=== PATIENT | male | born 1960 | race African-American/Black ===

== ENCOUNTER → 2020-12-17 | Outpatient (CLI) | payer BC, OTHER ==
[~2020-12-17] MED LIST: ALLOPURINOL 30300 M1 PO; APPLE CIDER VI1 EAC1 PO; ASA81BEC PO; KLOR-CON 10 ER10 MEQ PO; LOVASTATIN 20 M20 MG PO; METFORMIN HCL500 M3 PO; NORVASC5 M1 PO; OLMESARTAN-HCT1 EAC2 PO; SUPER THERAVIT1 EACH PO; VITAMIN D3125 MC2 PO
== END ==
LOC: LAB 09:58
PROVIDERS: ATTEND Student in an Organized Health Care Education/Training Program
DX: Z01.812 Encounter for preprocedural laboratory examination (principal); Z20.822 Contact with and (suspected) exposure to COVID-19

== ENCOUNTER 2020-12-23 06:07 | Day surgery (SDC) | payer BC, OTHER ==
[2020-12-17 09:58] LABS: URINE BILIRUBIN NEGATIVE (Negative); URINE BLOOD NEGATIVE (Negative); URINE CLARITY CLEAR; URINE COLOR YELLOW; URINE GLUCOSE-RANDOM* NEGATIVE (Negative); URINE KETONES NEGATIVE (Negative); URINE LEUKOCYTES-REFLEX NEGATIVE (Negative); URINE NITRITE-REFLEX NEGATIVE (Negative); URINE PROTEIN (DIPSTICK) NEGATIVE (Negative); URINE UROBILINOGEN 0.2 E.U./dl (0.2-1.0)
[2020-12-17 10:01] LABS: HEMATOCRIT 42.4 % (42.0-52.0); HEMOGLOBIN 14.1 gm/dL (14.0-18.0); MCH 30.6 pg (26.0-34.0); MCHC 33.3 g/dL (28.0-37.0); RBC 4.61 mil/uL (4.50-6.00); RDW 14.5 % (10.5-14.5); WBC 8.8 thou/uL (4.0-11.0)
[2020-12-17 10:15] LABS: INR 1.1; PROTIME 11.2 Seconds (9.3-11.4)
[2020-12-17 10:20] LABS: ALBUMIN 4.2 g/dL (3.4-5.0); CALCIUM 9.9 mg/dL (8.5-10.1); CREATININE 1.5 mg/dL (0.7-1.3); POTASSIUM 4.2 mmol/L (3.5-5.1)
--- NOTE | 2020-12-17 10:47 | EKG ---
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
[2020-12-18 00:06] LABS: GLYCOHEMOGLOBIN (HGB A1C) 6.2 % (4.8-5.6)
[~2020-12-23] VITALS: Ht 190.5 cm; Wt 158.8 kg
[2020-12-23 08:01] VITALS: BP 142/87
[2020-12-23 12:10] VITALS: BP 137/84
[2020-12-23 16:40] VITALS: BP 157/92
[2020-12-23 16:54] VITALS: BP 94/63
--- NOTE | 2020-12-23 19:29 | NUR ---
PT CARE ASSUMED AT 1030 FROM OR. A&Ox4. ON O2 4L FOR POSSIBLE UNDIAGNOSED SLEEP APNEA PER POST OP. KAVON DRESSING DRY AND INCT. POLARCARE/ SCD/SUNIL HOSES IN PLACE. PT/RT ON BOARD. ON BEDREST PER PT DUE TO PT BUCKLING. PAIN CONTROLLED WELL WITH PAIN MEDICATION ON BOARD. IV PATENT WITH NO REDNESS OR EDEMA, FLUIDS INFUSING. URINAL AT BEDSITE. FALL PROTOCOL IN PLACE. CALL IGHT IN REACH. WILL CONTINUE TO MONITOR.
[2020-12-23 19:59] VITALS: BP 142/85
--- NOTE | 2020-12-23 22:57 | NUR ---
ASSUMED PT CARE AT AROUND 1915 HRS. PT DENIES PAIN. R KNEE WITH KAVON DRSG INTACT WELL POLAR MCKENNA IN PLACE.AFEBRILE. DENIES NAUSEA OR VOMITING. VOIDING PER URINAL-ADEQUATE OUTPUT.BEDREST FOR TONIGHT. R FOOT WITH GOOD CSM.CALL LIGHT WITHIN REACH.
[2020-12-24 05:31] LABS: HEMATOCRIT 37.9 % (42.0-52.0); HEMOGLOBIN 12.4 gm/dL (14.0-18.0); MCHC 32.7 g/dL (28.0-37.0); MCV 94.6 fL (80.0-100.0); RDW 14.6 % (10.5-14.5); WBC 10.3 thou/uL (4.0-11.0)
[2020-12-24 07:23] VITALS: BP 139/80
[2020-12-24 07:44] VITALS: BP 139/80
--- NOTE | 2020-12-24 10:23 | NUR ---
PT CARE ASSUMED AT 0700. A&Ox4. IV PATENT WITH NO REDNESS OR EDEMA, FLUIDS INFUSIONG. IV DC'D. PT CLEARED PT TO DISCHARGE. WEANED OFF OF O2 AND SATING AT 94%. KAVON DRESSING DRY AND INTACT. POLARPACK/SCD'S/SUNIL HOSES IN PLACE. PAIN MANAGED VERY WELL WITH PAIN MEDICATION ON BOARD. FALL PROTOCOL IN PLACE. PT DISCHARGED WITH NO FURTHER QUESTIONS. CALL LIGHT IN REACH. WALKER PROVIDED. WILL CONTINUE TO MONITOR UNTIL DISCHARGING.
[2020-12-24 10:52] VITALS: BP 139/80
[2020-12-24 11:02] VITALS: BP 139/80
--- NOTE | 2020-12-24 11:03 | NUR ---
ASSESSMNENT- PT PLANS TO DC HOME LATER TODAY. HE HAS BEEN CLEARED BY PHYSICAL THERAPY. PT NEEDS A BARIATRIC WALKER FOR HOME USE. OFFERED OPTIONS WITHIN THE INS NETWORK & HE CHOSE [employer]. OBTAINED SCRIPT FOR BARIATRIC ROLLER WALKER & THIS WAS GIVEN TO TACHO [employer] REP. WHO ISSUED PT HIS WALKER. PT WILL GO TO [facility] IN [place]. WILL BE ABLE TO ASSIST & HE HAS A DTR IN THE AREA. NO OTHER DC NEEDS IDENTIFIED.
--- NOTE | 2020-12-27 16:03 | O ---
[facility] [place] [address] OPERATIVE REPORT Name: SANDIE OLIVARES Room #: DEP [facility]..#: [id number] Admission: 12/23/20 Attend Phys: Chris Flanagan MD Discharge: 12/24/20 Date of : 60 Report #: [id number] THIS REPORT FOR: cc: Emil Price MD, Michael M. MD Abraham,Chris Perez MD ~ DATE OF SERVICE: 12/23/2020 PREOPERATIVE DIAGNOSIS: Right knee osteoarthritis. POSTOPERATIVE DIAGNOSIS: Right knee osteoarthritis. PROCEDURE: Right total knee arthroplasty using Navio robotic assistance. SURGEON: Chris Flanagan MD. MEASUREMENT ANALYST: Elizabeth Diez PA-C. INDICATIONS FOR MEASUREMENT ANALYST: Throughout the case, extensive retraction and manipulation of the knee was required. This was afforded to me by my certified pathology assistant. ANESTHESIA: LMA with an adductor canal block. IMPLANTS: Avila and Nephew size 8 Oxinium Journey II BCS femur, size 7 tibia, size 12 constrained polyethylene and size 38 patella. TOURNIQUET TIME: 64 minutes. ESTIMATED BLOOD LOSS: 25 mL. COMPLICATIONS: None. SPECIMENS: None. CONDITION UPON LEAVING THE OPERATING ROOM: Stable. INDICATIONS FOR PROCEDURE: The patient is a 60-year-old gentleman who has severe right knee osteoarthritis. He had failed conservative measures for this and after discussion with him, he elected for right total knee arthroplasty. DESCRIPTION OF PROCEDURE: Risks, benefits, alternatives, complications were discussed in detail with the patient including but not limited to risk of anesthesia, risk of damage to nerves, arteries, blood vessels, risk for infection, bleeding, risk for continued knee pain, need for reoperation. Informed consent was obtained from the patient. Right knee was appropriately [address] [address] OPERATIVE REPORT Name: SANDIE OLIVARES Room #: DEP [facility] Jaime.[place].#: [id number] Admission: 12/23/20 Attend Phys: Chris Flanagan MD Discharge: 12/24/20 Date of : 60 Report #: [id number] marked in the preoperative holding area. IV Ancef was given for preoperative antibiotics. He was brought to the operating room and placed in supine position on operating room table. LMA anesthesia was induced without complication. Tourniquet was placed on the right thigh. Right lower extremity was prepped and draped in normal sterile fashion. Timeout was performed properly identifying the patient and procedure as well as the instrumentation and implants. All in the operating room were in agreement. Right lower extremity was exsanguinated, tourniquet was inflated. Tourniquet time was 64 minutes. Standard midline approach to knee was made with 10 blade through the skin. Dissection was taken down sharply to the fascia and deep flaps were developed medially and laterally. Fresh 10 blade was used to make a medial parapatellar arthrotomy and the knee was inspected. There was severe tricompartmental osteoarthritis. ACL and PCL were removed sharply. Reference pins were placed in to the femur and the tibia. The knee was then digitally mapped using [employer] robotic system. Intraoperative plan was made and we sized the size 8 femur with a size 7 tibia with a 10 spacer. After acceptance of the intraoperative plan, the distal femoral cut was made with a Navio bur. Distal femoral cutting block was pinned in place and chamfer cuts were made. Attention was turned to the tibia. Remainder of the menisci removed with Bovie cautery. Tibial resection guide was pinned in place using the Navio for placement. Tibial resection was made. Flexion and extension gaps were then checked and found to have good balance medially in flexion and extension. He was somewhat lax laterally and extension was felt, we could make up for this with a constrained implant. Tibia was sized, found to be a size 7. A size 7 tibial trial was placed, pinned and punched. Size 8 femoral trial was placed and box cut was made. This was then trialed with a size 10 up to a size 12 polyethylene and size 12 polyethylene demonstrated 1-2 millimeter of laxity medially throughout range of motion in extension and it did demonstrate 3-4 mm laterally of laxity. It was felt we could again make up for this with a constrained implant, 5 mm was resected from the posterior surface of the patella and a size 38 patellar trial button was placed. Knee was taken through range of motion, found to be stable, found to have good patellar tracking. Trial components were removed. Bony ends were thoroughly irrigated with normal saline. Final size 7 tibia, size 8 Oxinium Journey II BCS femur and a size 38 patella were cemented in place using standard cementation techniques. While the cement cured, a periarticular injection consisting of morphine, ropivacaine, epinephrine, Toradol was placed around the knee joint capsule. After the cement cured, tourniquet was deflated. Hemostasis was obtained with Bovie cautery. Final size 12 constrained polyethylene was placed. A gram of vancomycin was placed deep in the joint. Fascia was closed with 0 Vicryl, skin was closed with 2-0 Vicryl, skin staple and a KAVON dressing was applied. The [address] [address] OPERATIVE REPORT Name: SANDIE OLIVARES Room #: DEP [facility]#: [id number] Admission: 12/23/20 Attend Phys: Chris Flanagan MD Discharge: 12/24/20 Date of : 60 Report #: [id number] patient tolerated this procedure well and went to the recovery room under the care of Anesthesia postoperatively. <ELECTRONICALLY SIGNED> By: Chris Flanagan MD 12/27/20 1603 1350 1403 Chris Flanagan MD /nt
== END 2020-12-24 11:37 | disposition home or self-care (01) ==
LOC: OR → TBA 06:07 → OR 06:07 → TBA 06:15 → OR 09:07 → 4S 11:25 → OR 13:01
PROVIDERS: ATTEND Orthopaedic Surgery
DX: M17.11 Unilateral primary osteoarthritis, right knee (principal); I10 Essential (primary) hypertension; E11.9 Type 2 diabetes mellitus without complications; E78.5 Hyperlipidemia, unspecified; Z79.899 Other long term (current) drug therapy; Z79.84 Long term (current) use of oral hypoglycemic drugs; E66.9 Obesity, unspecified; Z68.41 Body mass index [BMI] 40.0-44.9, adult
CPT/HCPCS: 50010; 50101; 50415; 50954; 51130; 51225; 51320; 51412; 52001; 52282; 53000; 53078; 53365; 56527; 56528; 57095; 57103; 57110; 57127; 57180; 62110; 62900; 64039; 64043; 70005

== ENCOUNTER → 2021-08-23 | Outpatient (CLI) | payer BC, OTHER ==
[2021-08-23 09:05] LABS: HEMATOCRIT 41.9 % (42.0-52.0); HEMOGLOBIN 13.7 gm/dL (14.0-18.0); MCH 30.6 pg (26.0-34.0); MCHC 32.8 g/dL (28.0-37.0); MCV 93.4 fL (80.0-100.0); RBC 4.48 mil/uL (4.50-6.00); RDW 15.2 % (10.5-14.5); WBC 7.1 thou/uL (4.0-11.0)
[2021-08-23 09:08] LABS: URINE BILIRUBIN NEGATIVE (Negative); URINE BLOOD NEGATIVE (Negative); URINE CLARITY CLEAR; URINE COLOR YELLOW; URINE GLUCOSE-RANDOM* NEGATIVE (Negative); URINE KETONES NEGATIVE (Negative); URINE LEUKOCYTES-REFLEX NEGATIVE (Negative); URINE NITRITE-REFLEX NEGATIVE (Negative); URINE PROTEIN (DIPSTICK) NEGATIVE (Negative); URINE SPECIFIC GRAVITY 1.015 (1.005-1.035); URINE UROBILINOGEN 0.2 E.U./dl (0.2-1.0)
[2021-08-23 09:17] LABS: ALBUMIN 4.1 g/dL (3.4-5.0); CALCIUM 9.4 mg/dL (8.5-10.1); CREATININE 1.4 mg/dL (0.7-1.3); INR 1.02; POTASSIUM 4.6 mmol/L (3.5-5.1); PROTIME 11.1 Seconds (10.5-12.1)
--- NOTE | 2021-08-23 15:54 | EKG ---
[address] [email or web address] [address] ELECTROCARDIOGRAM REPORT Name: OLIVARESSANDIE B Room #: [facility]#: [id number] Admission: 08/23/21 Attend Phys: Chris Flanagan MD Discharge: Date of : 60 Report #: [id number] [facility] Test Date: 2021-08-23 Test Time: 08:52:00 Pat Name: SANDIE OLIVARES Department: Room: Gender: Facility Attendant: BHAVESH RAND : 1960 Requested By: Chris Flanagan Order Number: [id number] MD: Clyde Skinner Measurements Intervals [place] Rate: 90 P: 35 [place]: 215 QRS: 43 QRSD: 101 T: 52 QT: 353 QTc: 432 Interpretive Statements Sinus rhythm Borderline prolonged [place] interval Compared to ECG 12/17/2020 09:29:57 ST (T wave) deviation now present Sinus tachycardia no longer present Electronically Signed On 08-23-2021 15:54:47 CDT by Clyde Skinner [email or web address] <ELECTRONICALLY SIGNED> By: Clyde Skinner MD, [facility] 08/23/21 1554 Clyde Skinner MD, FAC /EPI
== END ==
LOC: PAC 08:27
PROVIDERS: ATTEND Orthopaedic Surgery
DX: E11.9 Type 2 diabetes mellitus without complications (principal); I10 Essential (primary) hypertension

== ENCOUNTER 2021-09-05 06:04 | Day surgery (SDC) | payer BC, OTHER ==
[~2021-09-05] VITALS: Ht 190.5 cm; Wt 160.1 kg
--- NOTE | ~2021-09-05 | O ---
[facility] [address] OPERATIVE REPORT Name: SANDIE OLIVARES Room #: 150-1 [facility] M..#: [id number] Admission: 09/05/21 Attend Phys: Chris Flanagan MD Discharge: Date of : 60 Report #: [id number] THIS REPORT FOR: cc: Emil Price MD, Michael M. MD Abraham,Chris Perez MD ~ DATE OF SERVICE: 09/05/2021 PREOPERATIVE DIAGNOSIS: Left knee osteoarthritis. POSTOPERATIVE DIAGNOSIS: Left knee osteoarthritis. PROCEDURE: Left total knee arthroplasty using Navio robotic assistance. SURGEON: Chris Flanagan MD. UNIT COORDINATOR: Elizabeth Diez PA-C. INDICATION FOR UNIT COORDINATOR: Throughout the case, extensive retraction, manipulation of the knee was required. This was afforded to me by my junior assistant manager. ANESTHESIA: LMA with adductor canal block. IMPLANTS: A Avila [employer] Nephew size 7 Journey II BCS Oxinium femur, size 7 tibia, size 10 constrained polyethylene, size 35 patella. TOURNIQUET TIME: 68 minutes. ESTIMATED BLOOD LOSS: 25 mL. COMPLICATIONS: None. SPECIMENS: None. CONDITION UPON LEAVING THE OR: Stable. INDICATIONS FOR PROCEDURE: The patient is a 61-year-old gentleman with severe left knee osteoarthritis. He had failed conservative measures for this and after discussion with him, he elected for left total knee arthroplasty. DESCRIPTION OF PROCEDURE: Risks, benefits, alternatives, complications were discussed in detail with the patient including but not limited to risk of anesthesia, risk of damage to nerves, arteries, blood vessels, risk for infection, bleeding, risk for continued knee pain, need for reoperation. Informed consent was obtained from the patient. Left knee was appropriately marked in the preoperative holding area. IV Ancef was given for preoperative [address] [place] [address] OPERATIVE REPORT Name: SANDIE OLIVARES Room #: 150-1 [facility] Kobe#: [id number] Admission: 09/05/21 Attend Phys: Chris Flanagan MD Discharge: Date of : 60 Report #: [id number] antibiotics. He was brought to the operating room and placed in supine position on the operating room table. LMA anesthesia was induced without complication. Tourniquet was placed on the left thigh. Left lower extremity was prepped and draped in normal sterile fashion. Timeout was performed properly identifying the patient and procedure as well as instrumentation and implants. All in the operating room in agreement. Left lower extremity was exsanguinated, tourniquet was inflated. Tourniquet time was 68 minutes. Standard midline approach to knee was made with 10 blade through the skin. Dissection was taken down sharply to the fascia and deep flaps were developed medially and laterally. Fresh 10 blade was used to make a medial parapatellar arthrotomy and the knee was inspected. There was severe tricompartmental osteoarthritis. ACL and PCL were removed sharply. Reference pins were placed in the femur and the tibia. The knee was then digitally mapped using the Navio robotic system. Intraoperative plan was made. We sized the size 7 femur, the size 7 tibia. After acceptance of the intraoperative plan, the distal femoral cut was made with Navio bur. Distal femoral cutting block was pinned in place and chamfer cuts were made. Attention was turned to the tibia. Remainder of the menisci removed with Bovie cautery. Tibial resection guide was pinned in place using Navio for placement and tibial resection was made. Flexion and extension gaps were checked and found to be somewhat tight medially in extension and medial osteophyte was removed from the tibia and this balanced the knee well. Tibia sized, found to be a size 7. Size 7 tibial trial was placed, pinned and punched. Size 7 femoral trial was placed and the box cut was made. This was then trialed with a size 10 polyethylene. Size 10 polyethylene demonstrated 1 mm laxity medially throughout range of motion, up to 3 mm in deep flexion laterally of laxity, it was felt we can make up for this with a constrained implant. A 9 mm of bone was resected from the posterior surface of the patella and size 35 patellar trial button was placed. Knee was taken through range of motion, found to be stable, found to have good patellar tracking. Trial components were removed. Bone ends were thoroughly irrigated with normal saline. A final size 7 tibia, size 7 Journey II BCS Oxinium femur and a size 35 patella were cemented in place using standard cementation techniques. While the cement cured, a periarticular injection consisting of morphine, ropivacaine, epinephrine, Toradol was placed around the knee joint capsule. After the cement cured, the tourniquet was deflated. Hemostasis was obtained with Bovie cautery. A final size 10 constrained polyethylene was placed. A gram of vancomycin was placed deep in the joint. Fascia was closed with 0 Vicryl. Skin was closed with 2-0 Vicryl, skin staple and a KAVON dressing was applied. The patient tolerated this procedure well and went to recovery room under care of anesthesia postoperatively. By: 0912 0942 Chris Flanagan MD /mame
[2021-09-05 07:00] VITALS: BP 152/82
[2021-09-05 14:11] VITALS: BP 152/82
== END 2021-09-05 15:20 | disposition home or self-care (01) ==
LOC: OR 06:04 → TBA 06:04 → OR 13:43
PROVIDERS: ATTEND Orthopaedic Surgery
DX: M17.12 Unilateral primary osteoarthritis, left knee (principal); M25.562 Pain in left knee; I10 Essential (primary) hypertension; E11.9 Type 2 diabetes mellitus without complications; E78.00 Pure hypercholesterolemia, unspecified; M10.9 Gout, unspecified; Z98.890 Other specified postprocedural states; Z79.899 Other long term (current) drug therapy; Z96.651 Presence of right artificial knee joint; Z20.822 Contact with and (suspected) exposure to COVID-19
CPT/HCPCS: 50010; 50101; 50415; 50954; 51130; 51225; 51320; 51412; 53000; 53078; 53365; 56527; 56528; 57095; 57103; 57110; 57127; 57181; 62110; 62900; 64042; 70005